=== PATIENT | female | born 1995 | race African-American/Black ===

== ENCOUNTER 2025-01-03 17:45 | Inpatient (IN) | payer OTHER ==
[2025-01-03 18:35] VITALS: BMI 56.5
[2025-01-03] MEDS ORDERED: Ondansetron PF 4 MG/2 ML Vial IVP PRN (18:41)
[2025-01-03] MEDS ORDERED: Tranexamic Acid 1,000 MG/10 ML VIAL IVP PRN (18:41)
[2025-01-03] MEDS ORDERED: Carboprost 250 MCG/ML AMP IM PRN (18:41)
[2025-01-03] MEDS ORDERED: Lidocaine 1% (PF) 30 ML VIAL SC PRN (18:41)
[2025-01-03] MEDS ORDERED: Acetaminophen 500 MG TAB PO PRN (18:41)
[2025-01-03] MEDS ORDERED: Ibuprofen 800 MG TAB PO PRN (18:41)
[2025-01-03] MEDS ORDERED: hydrALAZINE 20 MG/ML VIAL SLOW IVP PRN (18:41)
[2025-01-03] MEDS ORDERED: Oxytocin 30 units/NS 500 ML 500 ML IV SCH ×2 (18:45)
[2025-01-03 19:10] LABS: Hematocrit 33.6 % (34.9-44.5); Hemoglobin 11.0 g/dL (12.0-15.5); Mean Corpuscular Hemoglobin 29.1 pg (27.0-33.0); Mean Corpuscular Volume 88.9 fL (81.6-98.3); Platelet Count 222 10x3/uL (150-450); Red Blood Cell (RBC) Count 3.78 10x6/uL (3.90-5.03); White Blood Cell (WBC) Count 5.62 10x3/uL (3.5-10.5)
[2025-01-03 20:50] LABS: Syphilis Antibody Index 0.07 S/CO (<1.00 Non-Reactive)
[2025-01-03 20:51] LABS: Hep B Surf Ag - L&D Non-Reactive S/CO (NonReactive)
[2025-01-04] MEDS: Oxytocin 30 units/NS 500 ML 500 ML IV SCH (16:15)
[2025-01-05] MEDS ORDERED: diphenhydrAMINE 50 MG/ML VIAL IVP PRN (18:40)
[2025-01-05] MEDS ORDERED: Acetaminophen 325 MG TAB PO PRN (18:40)
[2025-01-05] MEDS ORDERED: Communication Order-Pharmacy FS SCH (18:45)
[2025-01-05] MEDS ORDERED: fentaNYL 2 mcg/Ropivacaine 0.2% Epidural 100 ML CADD EPIDURAL SCH (18:45)
[2025-01-06] MEDS ORDERED: Bicitra 30 ML UDCUP PO PRN (00:26)
[2025-01-06] MEDS ORDERED: Famotidine/PF 20 mg/2ml Vial SLOW IVP PRN (00:26)
[2025-01-06] MEDS ORDERED: Azithromycin 500 MG in Sodium Chloride 0.9% 250 ML 250 ML IVPB SCH (00:30)
[2025-01-06] MEDS ORDERED: Meperidine HCl/PF 25 MG (1 mL) VIAL SLOW IVP PRN (02:03)
[2025-01-06] MEDS ORDERED: diphenhydrAMINE 50 MG/ML VIAL IVP PRN (02:03)
[2025-01-06] MEDS ORDERED: Ondansetron PF 4 MG/2 ML Vial IVP PRN ×3 (02:03→04:15)
[2025-01-06] MEDS ORDERED: Communication Order-Pharmacy FS SCH (02:15)
[2025-01-06] MEDS: Ketorolac Tromethamine 30 MG (1 mL) VIAL IVP SCH (03:00)
[2025-01-06] MEDS ORDERED: hydrALAZINE 20 MG/ML VIAL SLOW IVP PRN (04:15)
[2025-01-06] MEDS ORDERED: diphenhydrAMINE 25 MG CAP PO PRN (04:15)
[2025-01-06] MEDS ORDERED: Oxytocin 30 units/NS 500 ML 500 ML IV SCH (04:15)
[2025-01-06] MEDS ORDERED: Boostrix 0.5 ML (Tdap) VIAL (>/=7 yrs of age) IM ONE (04:15)
[2025-01-06] MEDS ORDERED: Lanolin Ointment 7 GM TUBE TOP PRN (04:15)
[2025-01-06] MEDS: Lidocaine 2% MPF 10 ML AMP (For Epidural Use) ONE ×2 (04:18→04:19)
[2025-01-06] MEDS: CEFAZOLIN 2 GM VIAL ONE (04:18)
[2025-01-06] MEDS: Azithromycin 500 MG VIAL ONE (04:18)
[2025-01-06] MEDS: LABETALOL PO SCH (04:18)
[2025-01-06] MEDS: fentaNYL/Ropivacaine Epidural 100 ML ONE (04:18)
[2025-01-06] MEDS: Dexamethasone 10 MG/ML VIAL ONE (04:18)
[2025-01-06] MEDS: Ondansetron PF 4 MG/2 ML Vial ONE (04:19)
[2025-01-06] MEDS: Oxytocin 10 UNITS/ML VIAL ONE (04:19)
[2025-01-06] MEDS: Ferrous Sulfate 325 MG TAB PO SCH (08:48)
[2025-01-06] MEDS: Ketorolac Tromethamine 30 MG (1 mL) VIAL IVP PRN (10:49)
[2025-01-06] MEDS: Ondansetron PF 4 MG/2 ML Vial IVP PRN (12:01)
[2025-01-06] MEDS ORDERED: HYDROcodone/Acetaminophen 5/325 mg Tablet PO PRN (18:41)
[2025-01-07] MEDS: HYDROcodone/Acetaminophen 5/325 mg Tablet PO PRN (04:00)
[2025-01-07] MEDS: Ibuprofen 800 MG TAB PO SCH (06:02)
[2025-01-07 06:12] LABS: Hematocrit 28.5 % (34.9-44.5); Hemoglobin 9.2 g/dL (12.0-15.5); Mean Corpuscular Hemoglobin 29.4 pg (27.0-33.0); Mean Corpuscular Volume 91.1 fL (81.6-98.3); Platelet Count 166 10x3/uL (150-450); Red Blood Cell (RBC) Count 3.13 10x6/uL (3.90-5.03); White Blood Cell (WBC) Count 13.77 10x3/uL (3.5-10.5)
[2025-01-07] MEDS: Simethicone Chewable 80 MG TAB PO PRN (08:11)
[2025-01-08] MEDS: Ibuprofen 800 MG TAB PO SCH (01:00)
[2025-01-08 08:33] LABS: #Basophils Less than 0.03 10x3/uL (0.0-0.2); #Eosinophils 0.06 10x3/uL (0.0-0.5); #Monocytes 0.67 10x3/uL (0.0-1.1); #Neutrophils 6.50 10x3/uL (1.5-8.4); %Basophils 0.1 % (0.0-2.0); %Eosinophils 0.7 % (0.0-6.0); %Lymphocytes 18.9 % (18.0-47.0); %Monocytes 7.4 % (0.0-10.0); %Neutrophils 72.2 % (40.0-75.0); Hematocrit 29.5 % (34.9-44.5); Hemoglobin 9.7 g/dL (12.0-15.5); Mean Corpuscular Hemoglobin 29.6 pg (27.0-33.0); Mean Corpuscular Volume 89.9 fL (81.6-98.3); Platelet Count 181 10x3/uL (150-450); Red Blood Cell (RBC) Count 3.28 10x6/uL (3.90-5.03); White Blood Cell (WBC) Count 9.00 10x3/uL (3.5-10.5)
[2025-01-08 08:50] LABS: ALT (SGPT) 18 U/L (Less than 34); AST (SGOT) 20 U/L (11-34); Albumin 2.5 g/dL (3.1-4.5); Alkaline Phosphatase 88 U/L (40-110); Anion Gap 15 mmol/L (10-20); BUN (Urea Nitrogen) 12 mg/dL (7.0-18.7); Bilirubin, Total 0.3 mg/dL (0.3-1.2); Calc. Creatinine Clearance 274 mL/min (70-130); Calcium 9.0 mg/dL (7.8-10.44); Carbon Dioxide 17 mmol/L (22-29); Chloride 110 mmol/L (98-107); Globulin 3.7 g/dL (2.4-3.5); Glucose 79 mg/dL (70-105); Potassium 3.9 mmol/L (3.5-5.1); Sodium 138 mmol/L (136-145)
[2025-01-08] MEDS: Furosemide 20 MG (2 mL) VIAL SLOW IVP SCH (09:47)
[2025-01-09] MEDS ORDERED: Calcium Gluc 4.6 MEQ/10 ML (100 MG/ML) SLOW IVP PRN (00:53)
[2025-01-09] MEDS: hydrALAZINE 20 MG/ML VIAL SLOW IVP PRN ×2 (01:17→01:43)
[2025-01-09 01:39] LABS: #Basophils Less than 0.03 10x3/uL (0.0-0.2); #Eosinophils 0.15 10x3/uL (0.0-0.5); #Monocytes 0.68 10x3/uL (0.0-1.1); #Neutrophils 6.03 10x3/uL (1.5-8.4); %Basophils 0.1 % (0.0-2.0); %Eosinophils 1.8 % (0.0-6.0); %Lymphocytes 19.0 % (18.0-47.0); %Monocytes 8.0 % (0.0-10.0); %Neutrophils 70.7 % (40.0-75.0); Hematocrit 29.2 % (34.9-44.5); Hemoglobin 9.9 g/dL (12.0-15.5); Mean Corpuscular Hemoglobin 30.1 pg (27.0-33.0); Mean Corpuscular Volume 88.8 fL (81.6-98.3); Platelet Count 205 10x3/uL (150-450); Red Blood Cell (RBC) Count 3.29 10x6/uL (3.90-5.03); White Blood Cell (WBC) Count 8.52 10x3/uL (3.5-10.5)
[2025-01-09] MEDS: Furosemide 20 MG (2 mL) VIAL SLOW IVP SCH (01:44)
[2025-01-09 01:54] LABS: ALT (SGPT) 20 U/L (Less than 34); AST (SGOT) 29 U/L (11-34); Albumin 2.6 g/dL (3.1-4.5); Alkaline Phosphatase 96 U/L (40-110); Anion Gap 15 mmol/L (10-20); BUN (Urea Nitrogen) 13 mg/dL (7.0-18.7); Bilirubin, Total 0.3 mg/dL (0.3-1.2); Calc. Creatinine Clearance 251 mL/min (70-130); Calcium 9.3 mg/dL (7.8-10.44); Carbon Dioxide 17 mmol/L (22-29); Chloride 108 mmol/L (98-107); Globulin 3.9 g/dL (2.4-3.5); Glucose 75 mg/dL (70-105); Potassium 4.2 mmol/L (3.5-5.1); Sodium 136 mmol/L (136-145)
[2025-01-09] MEDS: Magnesium Sulfate 20 gm/500 ml 20 GM/500 ML BAG IVPB SCH (02:16)
[2025-01-09] MEDS: Enoxaparin 40 MG (0.4 mL) SYRINGE SC SCH (03:19)
[2025-01-09] MEDS: NIFEdipine 10 MG CAP PO SCH (04:04)
[2025-01-09] MEDS: NIFEdipine XL 30 MG ER.TAB PO SCH ×2 (06:45→23:44)
[2025-01-09] MEDS ORDERED: NIFEdipine XL 30 MG ER.TAB PO SCH ×3 (09:00)
[2025-01-10] MEDS: Ibuprofen 800 MG TAB PO SCH (00:18)
[2025-01-10] MEDS ORDERED: Ibuprofen 200 MG TAB PO SCH (00:30)
[2025-01-10] MEDS: NIFEdipine XL 90 MG ER.TAB PO SCH (08:07)
[2025-01-10] MEDS ORDERED: NIFEdipine XL 30 MG ER.TAB PO SCH (09:00)
[2025-01-10] MEDS: Furosemide 40 MG (4 mL) VIAL SLOW IVP SCH (09:10)
[2025-01-10 16:30] VITALS: BMI 56.5
[2025-01-10 16:43] VITALS: BP 136/72; TEMP 97.9
== END 2025-01-10 16:45 | disposition home or self-care (01) | DRG 788 ==
LOC: CSHLD 17:45 → CSHPP 01-06 04:14 → CSHLD 01-09 02:30 → CSHPP 01-09 17:45
PROVIDERS: ADMIT Family Medicine; ATTEND Family Medicine
PROC: 10D00Z1 Extraction of Products of Conception, Low, Open Approach (ICD-10-PCS; principal; 2025-01-06)
PROC: 3E0334Z Introduction of Serum, Toxoid and Vaccine into Peripheral Vein, Percutaneous Approach (ICD-10-PCS; 2025-01-06)
PROC: 3E03329 Introduction of Other Anti-infective into Peripheral Vein, Percutaneous Approach (ICD-10-PCS; 2025-01-06)
DX: O14.14 Severe pre-eclampsia complicating childbirth (principal); O99.214 Obesity complicating childbirth; O26.893 Other specified pregnancy related conditions, third trimester; Z37.0 Single live birth; O99.892 Other specified diseases and conditions complicating childbirth; R73.03 Prediabetes; Z3A.37 37 weeks gestation of pregnancy; O76 Abnormality in fetal heart rate and rhythm complicating labor and delivery; O66.9 Obstructed labor, unspecified; O62.1 Secondary uterine inertia; E66.89 Other obesity not elsewhere classified; O99.02 Anemia complicating childbirth; Z67.41 Type O blood, Rh negative; Z79.899 Other long term (current) drug therapy; Z79.82 Long term (current) use of aspirin
CPT/HCPCS: 36415; 51702; 59200; 80053; 85025; 85027; 85461; 86780; 86850; 86900; 86901; 87340; 90384; 96372; J0360; J0595; J1100; J1650; J1885; J1940; J2274; J2550; J2590; J3475